=== PATIENT | female | born 1975 | race Caucasian/White ===

== ENCOUNTER 2016-05-05 09:06 | Day surgery (SDC) | payer OTHER ==
[2016-05-01 14:53] VITALS: BMI 18.4
[~2016-05-05 09:06] MED LIST: SODIUM CHLORIDE 0.9% 1,000 ML IV SCH
[2016-05-05 09:46] VITALS: RESP 16; TEMP 98.4
[2016-05-05] MEDS ORDERED: CLINDAMYCIN 900 MG in DEXTROSE 5% IN WATER 50 ML IVPB ONE ×2 (10:00)
[2016-05-05] MEDS ORDERED: IV FLUID CONTINUATION 400 ML IV ONE (11:10)
[2016-05-05] MEDS ORDERED: LIDOCAINE 2% INJ 20 MG/ML SQ ONE (11:16)
[2016-05-05] MEDS ORDERED: fentaNYL (PF) 50 MCG/ML 2 ML AMP ONE (11:19)
[2016-05-05] MEDS ORDERED: fentaNYL (PF) 50 MCG/ML 2 ML AMP IV ONE (11:20)
--- NOTE | 2016-05-05 11:37 | P.PCN ---
Preoperative Diagnosis: Procedure: Loop monitor explant, normal cardiac rhythm, documented seizure Under local anesthesia and sedation and the incision was made directly over the previous surgical site. Dissection down to the loop monitor. Loop monitor was explanted and the wound was closed in a single layer IV antibiotics administered preoperatively Plan Keep foot dry for 5 days, suture removal in 5 days
[2016-05-05 11:57] VITALS: BP 104/68; PULSE 63
== END 2016-05-05 12:02 | disposition home or self-care (01) ==
LOC: CATHEP 09:06
PROVIDERS: ATTEND Internal Medicine Clinical Cardiac Electrophysiology
DX: Z45.09 Encounter for adjustment and management of other cardiac device (principal); R55 Syncope and collapse; R56.9 Unspecified convulsions
CPT/HCPCS: 33284; J2001; J3010

== ENCOUNTER 2016-09-09 02:15 | Emergency (ER) | payer OTHER ==
[2016-09-09 02:33] VITALS: TEMP 97.6
[2016-09-09] MEDS ORDERED: HYDROcodone/APAP 5-325MG 1 EACH TAB PO STA (03:21)
--- NOTE | 2016-09-09 03:34 | ED ---
Burn/Smoke HPI - General Chief complaint: Burn/Smoke Inhalation Stated complaint: Burn on hand, blisters Time Seen by Provider: 09/09/16 02:51 Source: patient, RN notes reviewed Mode of arrival: ambulatory Limitations: no limitations - History of Present Illness Initial comments: 40 yo Female presents to the emergency department with a chief complaint of right hand burn. Patient states that she was cooking dinner tonight around 500pm. Patient states that she had a seizure. She does have a history of seizures and states that she had a seizure much like her normal seizure. Patient states her daughter witnessed the seizure and the patient put her hand into a boiling pot of water. The patient states that she noticed a blistering immediately and she states the tips of her finger also have some decreased sensation. Patient states that she was concerned due to the blistering so she left that she should be seen. Patient is right-handed. Patient states she is up-to-date on her tetanus.Patient denies any recent fever, chills, shortness of breath, chest pain, back pain, abdominal pain, nausea vomiting, numbness or tingling, dysuria or hematuria, constipation or diarrhea, headaches or visual changes, or any other current symptoms. - Related Data Home Medications Medication Instructions Recorded Confirmed Ascorbic Acid [Vitamin C] 500 mg PO DAILY 05/01/16 05/05/16 Cyanocobalamin [Vitamin B-12] 500 mcg PO DAILY 05/01/16 05/05/16 Multivit with Calcium,Iron,Min 1 each PO DAILY 05/01/16 05/05/16 [Women's Multivitamin] levETIRAcetam [Keppra] 750 mg PO Q12HR 05/01/16 05/05/16 Allergies Allergy/AdvReac Type Severity Reaction Status Date / Time Penicillins Allergy Nausea & Verified 09/09/16 02:33 Vomiting ondansetron AdvReac Nausea & Verified 09/09/16 02:33 [From Zofran (as Vomiting & hydrochloride)] Diarrhea Review of Systems ROS Statement: Those systems with pertinent positive or pertinent negative responses have been documented in the HPI. ROS Other: All systems not noted in ROS Statement are negative. Past Medical History Past Medical History: Asthma, Seizure Disorder Additional Past Medical History / Comment(s): SEE DR STEEN H&P, partial complex seizures right side of brain-last seizure 2014, pt states during her seizures she "blacks out" however does not fall History of Any Multi-Drug Resistant Organisms: None Reported Past Surgical History: EPS, Heart Catheterization Additional Past Surgical History / Comment(s): LAPAROSCOPIC ABDOMINAL SURGERY R/ O ENDOMETRIOSIS 01/2012. TTT 03/2014. Loop monitor Past Anesthesia/Blood Transfusion Reactions: Postoperative Nausea & Vomiting ( PONV) Additional Past Anesthesia/Blood Transfusion Reaction / Comment(s): C/O SEVERE PONV AFTER AWAKENED FROM RECOVERY IN LAST SURG 01/2012, FELT IT WAS "DUE TO ANTINAUSEA RX GIVEN," STATES PATIENT. Type of Cardiac Device: Loop Device Placement Date:: 04/24/14 Past Psychological History: No Psychological Hx Reported Smoking Status: Never smoker Past Alcohol Use History: Occasional Additional Past Alcohol Use History / Comment(s): STATES 2 GLASSES OF WINE WEEKLY Past Drug Use History: None Reported - Past Family History Father Family Medical History: Myocardial Infarction (MO) General Exam - General Exam Comments Initial Comments: General: The patient is awake and alert, in no distress, and does not appear acutely ill. Neck: The neck is supple, there is no tenderness. Cardiovascular: There is a regular rate and rhythm. No murmur, rub or gallop is appreciated. Respiratory: Lungs are clear to auscultation, respirations are non-labored, breath sounds are equal. No wheezes, stridor, rales, or rhonchi. Musculoskeletal: Patient does appear to have decreased sensation to the distal aspect of all 4 digits on the right hand. There does appear to be circumferential second degree lamar to digits 2 through 5. There is suspicion for possible third-degree to the tips of the digits. Patient does have full range of motion with in patient's ability to move the blistering areas. Neurological: CN II-XII intact, There are no obvious motor or sensory deficits. Coordination appears grossly intact. Speech is normal. Skin: Skin is warm and dry and no rashes or lesions are noted. Psychiatric: Normal mood and affect. Limitations: no limitations Course Vital Signs 09/09/16 02:27 Temperature 97.6 F Pulse Rate 76 Respiratory 16 Rate Blood Pressure 125/79 O2 Sat by Pulse 98 Oximetry Medical Decision Making - Medical Decision Making 40-year-old female presents to the emergency department with a chief complaint of blisters to the right hand. At this time patient does appear to have second- degree burn. There is a possible risk for third degree lamar to the right hand. Patient did have a seizure leading up to this. However patient does have history of seizures and states this is much like her normal seizure. At this time we will transfer. Due to the burn. This time we will be transferring the patient to the burn center. This is discussed with the patient as well as the discussed [place] receiving burn center at this time we will transfer the patient for continued care. Disposition Clinical Impression: Second degree burn of right hand and fingers Disposition: OTHER INSTITUTION NOT DEFINED Condition: Stable Additional Instructions: Go directly to the burn center Referrals: Millie Nunez MD [Primary Care Provider] - 1-2 days - Out of Hospital Transfer - Req. Specs Out of Hospital Transfer - Requested Specifics: Other Emergency Center ([facility])
[2016-09-09 04:04] VITALS: BP 122/67; PULSE 80; RESP 20
== END 2016-09-09 03:50 | disposition short-term general hospital (02) ==
LOC: EC 02:15
DX: T23.231A Burn of second degree of multiple right fingers (nail), not including thumb, initial encounter (principal); G40.909 Epilepsy, unspecified, not intractable, without status epilepticus; Z88.0 Allergy status to penicillin; Z88.8 Allergy status to other drugs, medicaments and biological substances; Z79.899 Other long term (current) drug therapy; X08.8XXA Exposure to other specified smoke, fire and flames, initial encounter; Y93.G3 Activity, cooking and baking
CPT/HCPCS: 99284

== ENCOUNTER → 2017-10-26 | Outpatient (CLI) | payer OTHER ==
[2017-10-26 18:06] LABS: DHEA Sulfate 152.3 ug/dL (26.0-430.0)
== END | disposition home or self-care (01) ==
LOC: LABWHC1 08:18
PROVIDERS: ATTEND Obstetrics & Gynecology
DX: N94.6 Dysmenorrhea, unspecified (principal); R68.82 Decreased libido; N95.1 Menopausal and female climacteric states
CPT/HCPCS: 36415; 82627; 82670; 83001; 84403

== ENCOUNTER → 2018-02-08 | Outpatient (CLI) | payer OTHER ==
--- NOTE | 2018-02-09 10:37 | MM ---
Reason for exam: screening (asymptomatic). Last mammogram was performed 1 year ago. History: Took hormonal contraceptives for 4 years. Physical Findings: A clinical breast exam by your physician is recommended on an annual basis and results should be correlated with mammographic findings. MG 3D Screening Mammo W/Cad Bilateral CC and MLO view(s) were taken. Prior study comparison: February 07, 2017, bilateral MG 3d screening mammo w/cad. February 04, 2016, bilateral MG screening mammo w CAD. The breast tissue is extremely dense which could obscure a lesion on mammography. There are benign appearing round calcifications in the right breast. There is no discrete abnormality. ASSESSMENT: Benign, BI-RAD 2 RECOMMENDATION: Routine screening mammogram of both breasts in 1 year.
== END | disposition home or self-care (01) ==
LOC: RADMAMWWP 09:24
PROVIDERS: ATTEND Obstetrics & Gynecology
DX: Z12.31 Encounter for screening mammogram for malignant neoplasm of breast (principal)
CPT/HCPCS: 77063; 77067

== ENCOUNTER → 2018-10-04 | Outpatient (CLI) | payer OTHER ==
[2018-10-04 08:35] LABS: Basophils % (A) 1 %; Eosinophils # (A) 0.1 k/uL (0-0.7); Eosinophils % (A) 1 %; HCT 43.3 % (34.0-46.0); HGB 14.1 gm/dL (11.4-16.0); Lymphocytes # (A) 1.8 k/uL (1.0-4.8); Lymphocytes % (A) 28 %; MCH 30.8 pg (25.0-35.0); MCHC 32.6 g/dL (31.0-37.0); MCV 94.5 fL (80.0-100.0); Mean Platelet Volume 8.6; Monocytes # (A) 0.4 k/uL (0-1.0); Monocytes % (A) 6 %; Neutrophils % (A) 63 %; Platelet Count 223 k/uL (150-450); RBC 4.58 m/uL (3.80-5.40); RDW 13.2 % (11.5-15.5); WBC 6.4 k/uL (3.8-10.6)
[2018-10-04 16:19] LABS: Iron Saturation 50.52 (12.00-45.00)
[2018-10-04 16:21] LABS: African American GFR (CKD) 104.7 (60.0-200.0); Albumin 4.3 g/dL (3.80-4.90); Albumin/Globulin Ratio 1.79 (1.60-3.17); Anion Gap 6.9 mmol/L (4.00-12.00); BUN/Creat Ratio 17.5 Ratio (12.00-20.00); Calcium 9.4 mg/dL (8.7-10.3); Carbon Dioxide 28.1 mmol/L (21.6-31.8); Globulin 2.4 g/dL (1.6-3.3); Potassium 4.5 mmol/L (3.5-5.5); Total Bilirubin 0.8 mg/dL (0.3-1.2); Total Protein 6.7 g/dL (6.2-8.2)
== END | disposition home or self-care (01) ==
LOC: LABWHC1 07:41
PROVIDERS: ATTEND Family Medicine
DX: E78.5 Hyperlipidemia, unspecified (principal); R56.9 Unspecified convulsions; N94.5 Secondary dysmenorrhea
CPT/HCPCS: 36415; 80053; 80061; 80177; 82607; 83540; 83550; 84439; 84443; 85025

== ENCOUNTER → 2019-02-10 | Outpatient (CLI) | payer OTHER ==
--- NOTE | 2019-02-11 12:09 | MM ---
Reason for exam: screening (asymptomatic). Last mammogram was performed 1 year ago. History: Took hormonal contraceptives for 4 years. Physical Findings: A clinical breast exam by your physician is recommended on an annual basis and results should be correlated with mammographic findings. MG 3D Screening Mammo W/Cad Bilateral CC, MLO, and XCCL view(s) were taken. Prior study comparison: February 08, 2018, bilateral MG 3d screening mammo w/cad. February 07, 2017, bilateral MG 3d screening mammo w/cad. The breast tissue is extremely dense which could obscure a lesion on mammography. No suspicious abnormality. No significant changes when compared with prior studies. ASSESSMENT: Negative, BI-RAD 1 RECOMMENDATION: Routine screening mammogram of both breasts in 1 year.
== END | disposition home or self-care (01) ==
LOC: RADMAMWWP 09:33
PROVIDERS: ATTEND Obstetrics & Gynecology
DX: Z12.31 Encounter for screening mammogram for malignant neoplasm of breast (principal)
CPT/HCPCS: 77063; 77067

== ENCOUNTER → 2019-04-07 | Outpatient (CLI) | payer OTHER ==
[2019-04-07 07:33] LABS: Basophils % (A) 0 %; Eosinophils # (A) 0.1 k/uL (0-0.7); Eosinophils % (A) 1 %; HCT 39.4 % (34.0-46.0); HGB 13.3 gm/dL (11.4-16.0); Lymphocytes # (A) 1.7 k/uL (1.0-4.8); Lymphocytes % (A) 39 %; MCH 32.6 pg (25.0-35.0); MCHC 33.7 g/dL (31.0-37.0); MCV 96.6 fL (80.0-100.0); Mean Platelet Volume 9.2; Monocytes # (A) 0.3 k/uL (0-1.0); Monocytes % (A) 7 %; Neutrophils # (A) 2.1 k/uL (1.3-7.7); Neutrophils % (A) 49 %; Platelet Count 194 k/uL (150-450); RBC 4.08 m/uL (3.80-5.40); RDW 11.6 % (11.5-15.5); WBC 4.2 k/uL (3.8-10.6)
[2019-04-07 12:11] LABS: % Iron Saturation 26.67 (12.00-45.00); African American GFR (CKD) 103.9 (60.0-200.0); Albumin 4.2 g/dL (3.80-4.90); Albumin/Globulin Ratio 2.1 (1.60-3.17); Anion Gap 4.2 mmol/L (4.00-12.00); BUN/Creat Ratio 11.25 Ratio (12.00-20.00); Calcium 8.8 mg/dL (8.7-10.3); Carbon Dioxide 29.8 mmol/L (21.6-31.8); Chol/HDL Ratio 2.18; LDL Cholesterol,Calculated 92.8 mg/dL (0.0-131.0); Magnesium 1.9 mg/dL (1.5-2.4); Non-African American GFR(CKD) 89.7 (60.0-200.0); Total Bilirubin 0.5 mg/dL (0.3-1.2); Total Protein 6.2 g/dL (6.2-8.2); VLDL Calculation 13.2 mg/dL (5.00-40.00)
== END | disposition home or self-care (01) ==
LOC: LABWHC1 07:00
PROVIDERS: ATTEND Family Medicine
DX: E78.5 Hyperlipidemia, unspecified (principal); R79.0 Abnormal level of blood mineral; R56.9 Unspecified convulsions
CPT/HCPCS: 36415; 80053; 80061; 80177; 82550; 82607; 83540; 83550; 83735; 84443; 85025

== ENCOUNTER 2019-06-20 | Emergency (ER) | payer OTHER | END 2019-06-20 15:47 | disposition home or self-care (01) | CPT/HCPCS: 36415; 93005; 80053; 84484; 85025; 72125; 70450; 71260; 74177; 99284; 96374; 96375; J2270; J2765; Q9967 ==

== ENCOUNTER → 2019-10-18 | Outpatient (CLI) | payer OTHER ==
[2019-10-18 08:04] LABS: Basophils % (A) 1 %; Eosinophils # (A) 0.1 k/uL (0-0.7); Eosinophils % (A) 2 %; HCT 40.1 % (34.0-46.0); HGB 12.7 gm/dL (11.4-16.0); Lymphocytes # (A) 1.3 k/uL (1.0-4.8); Lymphocytes % (A) 27 %; MCH 30.3 pg (25.0-35.0); MCHC 31.8 g/dL (31.0-37.0); MCV 95.2 fL (80.0-100.0); Mean Platelet Volume 8.7; Monocytes # (A) 0.3 k/uL (0-1.0); Monocytes % (A) 7 %; Neutrophils # (A) 2.8 k/uL (1.3-7.7); Neutrophils % (A) 60 %; Platelet Count 171 k/uL (150-450); RBC 4.21 m/uL (3.80-5.40); RDW 12.3 % (11.5-15.5); WBC 4.7 k/uL (3.8-10.6)
[2019-10-18 13:03] LABS: African American GFR (CKD) 103.9 (60.0-200.0); Albumin 4.3 g/dL (3.80-4.90); Albumin/Globulin Ratio 1.87 (1.60-3.17); Calcium 9.2 mg/dL (8.7-10.3); Globulin 2.3 g/dL (1.6-3.3); Non-African American GFR(CKD) 89.7 (60.0-200.0); Potassium 4.8 mmol/L (3.5-5.5); Total Bilirubin 0.5 mg/dL (0.3-1.2); Total Protein 6.6 g/dL (6.2-8.2)
== END ==
LOC: LABWHC1 10-17 09:37
PROVIDERS: ATTEND Family Medicine
DX: E78.5 Hyperlipidemia, unspecified (principal); G90.50 Complex regional pain syndrome I, unspecified; R56.9 Unspecified convulsions
CPT/HCPCS: 36415; 80053; 80177; 84439; 84443; 84480; 85025

== ENCOUNTER → 2020-01-10 | Outpatient (CLI) | payer OTHER ==
[2020-01-10 07:58] LABS: Basophils # (A) 0.1 k/uL (0-0.2); Basophils % (A) 1 %; Eosinophils # (A) 0.1 k/uL (0-0.7); Eosinophils % (A) 2 %; HCT 41.5 % (34.0-46.0); HGB 13.8 gm/dL (11.4-16.0); Lymphocytes # (A) 1.5 k/uL (1.0-4.8); Lymphocytes % (A) 26 %; MCHC 33.2 g/dL (31.0-37.0); MCV 96.4 fL (80.0-100.0); Mean Platelet Volume 8.3; Monocytes # (A) 0.5 k/uL (0-1.0); Monocytes % (A) 8 %; Neutrophils # (A) 3.6 k/uL (1.3-7.7); Neutrophils % (A) 62 %; Platelet Count 184 k/uL (150-450); RBC 4.31 m/uL (3.80-5.40); RDW 12.9 % (11.5-15.5); WBC 5.8 k/uL (3.8-10.6)
[2020-01-10 16:09] LABS: African American GFR (CKD) 121.3 (60.0-200.0); Albumin 4.3 g/dL (3.80-4.90); Albumin/Globulin Ratio 1.87 (1.60-3.17); Anion Gap 7.8 mmol/L (4.00-12.00); BUN/Creat Ratio 17.14 Ratio (12.00-20.00); Calcium 9.1 mg/dL (8.7-10.3); Carbon Dioxide 26.2 mmol/L (21.6-31.8); Globulin 2.3 g/dL (1.6-3.3); Non-African American GFR(CKD) 104.6 (60.0-200.0); Potassium 4.3 mmol/L (3.5-5.5); Total Bilirubin 0.7 mg/dL (0.3-1.2); Total Protein 6.6 g/dL (6.2-8.2)
[2020-01-10 18:07] LABS: Prolactin 8.9 ng/mL (2.8-29.2)
[2020-01-10 18:08] LABS: Luteinizing Hormone 6.2 mIU/mL
[2020-01-11 07:32] LABS: Levetiracetam (Keppra) 17.8 ug/mL (3.0-60.0)
== END | disposition home or self-care (01) ==
LOC: LABWHC1 07:11
PROVIDERS: ATTEND Family Medicine
DX: G40.909 Epilepsy, unspecified, not intractable, without status epilepticus (principal); F32.81 Premenstrual dysphoric disorder
CPT/HCPCS: 36415; 80053; 80177; 80235; 82550; 83001; 83002; 84146; 84403; 84443; 85025

== ENCOUNTER → 2020-02-14 | Outpatient (CLI) | payer OTHER | END | disposition home or self-care (01) | LOC: RADMAMWWP 08:43 | PROVIDERS: ATTEND Family Medicine | DX: Z53.9 Procedure and treatment not carried out, unspecified reason (principal) ==

== ENCOUNTER → 2020-09-19 | Outpatient (CLI) | payer BC ==
--- NOTE | 2020-09-21 10:38 | MM ---
Reason for exam: screening (asymptomatic). Last mammogram was performed 1 year and 7 months ago. History: Took hormonal contraceptives for 4 years. Physical Findings: A clinical breast exam by your physician is recommended on an annual basis and results should be correlated with mammographic findings. MG 3D Screening Mammo W/Cad Bilateral CC and MLO view(s) were taken. Prior study comparison: February 10, 2019, bilateral MG 3d screening mammo w/cad. February 08, 2018, bilateral MG 3d screening mammo w/cad. The breast tissue is extremely dense which could obscure a lesion on mammography. No significant changes when compared with prior studies. ASSESSMENT: Benign, BI-RAD 2 RECOMMENDATION: Routine screening mammogram of both breasts in 1 year.
== END | disposition home or self-care (01) ==
LOC: RADMAMWWP 13:33
PROVIDERS: ATTEND Family Medicine
DX: Z12.31 Encounter for screening mammogram for malignant neoplasm of breast (principal)
CPT/HCPCS: 77063; 77067

== ENCOUNTER → 2021-01-12 | Outpatient (CLI) | payer BC ==
[2021-01-12 11:35] LABS: Basophils # (A) 0.06 X 10*3/uL (0.00-0.10); Basophils % (A) 1.3 %; Eosinophils # (A) 0.08 X 10*3/uL (0.04-0.35); Eosinophils % (A) 1.8 %; HCT 38.3 % (37.2-46.3); HGB 12.4 g/dL (12.0-15.0); Lymphocytes % (A) 40.4 %; MCH 30.7 pg (27.0-32.0); MCHC 32.4 g/dL (32.0-37.0); MCV 94.8 fL (80.0-97.0); Mean Platelet Volume 11.8 fL (9.5-12.2); Monocytes # (A) 0.57 X 10*3/uL (0.20-1.00); Monocytes % (A) 12.8 %; Neutrophils # (A) 1.94 X 10*3/uL (1.80-7.70); Neutrophils % (A) 43.5 %; Platelet Count 199 X 10*3/uL (140-440); RBC 4.04 X 10*6/uL (4.10-5.20); WBC 4.46 X 10*3/uL (4.50-10.00)
[2021-01-12 13:02] LABS: BUN/Creat Ratio 16.72 Ratio (12.00-20.00); Chol/HDL Ratio 2.15 Ratio; Creatine Kinase 63 U/L (26-186); VLDL Calculation 7.42 mg/dL (5.00-40.00)
[2021-01-12 13:03] LABS: ALT 11 U/L (8-44); AST 16 U/L (13-35); Albumin 4.7 g/dL (3.8-4.9); Albumin/Globulin Ratio 1.89 (1.60-3.17); Alkaline Phosphatase 60 U/L (41-126); Blood Urea Nitrogen 14.9 mg/dL (9.0-27.0); Calcium 9.3 mg/dL (8.7-10.3); Carbon Dioxide 22.8 mmol/L (21.6-31.8); Chloride 107 mmol/L (96-109); Globulin 2.5 g/dL (1.6-3.3); Glucose 81 mg/dL (70-110); Non-African American GFR(CKD) 77.6 (60.0-200.0); Potassium 4.3 mmol/L (3.5-5.5); Sodium 141 mmol/L (135-145); Total Bilirubin <0.20 mg/dL (0.30-1.20); Total Protein 7.1 g/dL (6.2-8.2)
== END | disposition home or self-care (01) ==
LOC: LABWHC1 08:02
PROVIDERS: ATTEND Family Medicine
DX: E78.5 Hyperlipidemia, unspecified (principal); G90.50 Complex regional pain syndrome I, unspecified; R56.9 Unspecified convulsions
CPT/HCPCS: 36415; 80053; 80061; 82306; 82550; 82607; 84443; 85025

== ENCOUNTER → 2021-03-01 | Outpatient (CLI) | payer BC ==
--- NOTE | 2021-03-01 15:50 | US ---
EXAMINATION TYPE: US transvaginal DATE OF EXAM: 03/01/2021 COMPARISON: CT June 20, 2019 CLINICAL HISTORY: N92.1 Excessive and frequent menstruation. TECHNIQUE: Transvaginal (TV) and Transabdominal (TA) . Transabdominal sonographic images of the pel vis were acquired. Transvaginal sonographic images were medically necessary to better assess the fol lowing anatomy: Endometrium Date of LMP: irregular. EXAM MEASUREMENTS: Uterus: 8.6x6.0x5.1 cm Endometrial Stripe: 1.8 cm Right Ovary: 4.3x3.8x3.6 cm Left Ovary: 3.9x2.4x1.6 cm 1. Uterus: Retroverted Heterogenous 2. Endometrium: Thickened 3. Right Ovary: Cyst with septation 3.9x3.2x3.1cm 4. Left Ovary: 2.2x1.7x1.6cm cyst with septation 5. Bilateral Adnexa: Obscured by overlying bowel gas 6. Posterior cul-de-sac: Small amount of fluid Heterogeneous slightly retroflexed uterus with endometrial stripe measuring 15 to 18 mm slightly thic kened even for late secretory phase of menstrual cycle. Tiny amount of free fluid in pelvic cul-de-sa c. Both ovaries identified. Right ovary has a 3.9 x 3.2 x 3.1 cm thin-walled cyst with smooth inner wall but has thin septa. Left ovary has similar but smaller 2.2 cm thin-walled cyst with thin septa. IMPRESSION: 1. Heterogeneous thickening of the endometrium, considered dilatation and curettage to further evalua te. 2. Bilateral nonsimple ovarian cysts; O-RADS 2 lesions, almost certainly benign. Follow-up ultrasound in 6-12 weeks time advised to reassess.
== END | disposition home or self-care (01) ==
LOC: RADUSWWP 15:01
PROVIDERS: ATTEND Family Medicine
DX: R93.89 Abnormal findings on diagnostic imaging of other specified body structures (principal); N83.202 Unspecified ovarian cyst, left side; N83.201 Unspecified ovarian cyst, right side
CPT/HCPCS: 76830

== ENCOUNTER → 2021-03-15 | Outpatient (CLI) | payer BC ==
[2021-03-15 15:00] LABS: Basophils # (A) 0.05 X 10*3/uL (0.00-0.10); Basophils % (A) 0.8 %; Eosinophils # (A) 0.06 X 10*3/uL (0.04-0.35); HCT 39.7 % (37.2-46.3); HGB 12.8 g/dL (12.0-15.0); Lymphocytes # (A) 1.58 X 10*3/uL (0.90-5.00); Lymphocytes % (A) 25.2 %; MCH 30.3 pg (27.0-32.0); MCHC 32.2 g/dL (32.0-37.0); MCV 94.1 fL (80.0-97.0); Mean Platelet Volume 12.4 fL (9.5-12.2); Monocytes % (A) 11.2 %; Neutrophils # (A) 3.85 X 10*3/uL (1.80-7.70); Neutrophils % (A) 61.5 %; Platelet Count 215 X 10*3/uL (140-440); RBC 4.22 X 10*6/uL (4.10-5.20); RDW 14.2 % (11.5-14.5); WBC 6.26 X 10*3/uL (4.50-10.00)
[2021-03-15 19:13] LABS: African American GFR (CKD) 78.2 (60.0-200.0); Blood Urea Nitrogen 20.2 mg/dL (9.0-27.0); Calcium 9.2 mg/dL (8.7-10.3); Carbon Dioxide 18.6 mmol/L (20.0-27.5); Chloride 102 mmol/L (96-109); Follicle Stimulating Hormone 6.7 mIU/mL; Glucose 76 mg/dL (70-110); Non-African American GFR(CKD) 67.5 (60.0-200.0); Potassium 4.7 mmol/L (3.5-5.5); Sodium 135 mmol/L (135-145)
[2021-03-15 19:14] LABS: Cancer Antigen 125 16.6 U/mL (0.0-30.1)
[2021-03-15 23:37] LABS: Testosterone <2.50 ng/mL (9.01-47.94)
== END | disposition home or self-care (01) ==
LOC: LABWHC1 09:36
PROVIDERS: ATTEND Family Medicine
DX: N92.1 Excessive and frequent menstruation with irregular cycle (principal); N83.209 Unspecified ovarian cyst, unspecified side
CPT/HCPCS: 36415; 80048; 82670; 83001; 83002; 84144; 84403; 85025; 86304

== ENCOUNTER → 2021-06-11 | Outpatient (CLI) | payer BC ==
--- NOTE | 2021-06-12 07:17 | US ---
EXAMINATION TYPE: US transvaginal DATE OF EXAM: 06/11/2021 COMPARISON: 03/01/21 US Transvaginal CLINICAL HISTORY: N85.00 Endometrial hyperplasia. Endometrial hyperplasia for 3 months; patient state s taking prescribed hormones since March due to thickened endometrium and irregular cycles. TECHNIQUE: Transvaginal (TV). EXAM MEASUREMENTS: Uterus: 9.1 x 5.2 x 5.7 cm Endometrial Stripe: 0.83 cm Right Ovary: 3.3 x 1.8 x 2.1 cm Left Ovary: 3.6 x 2.3 x 2.2 cm 1. Uterus: Retroverted Appears wnl 2. Endometrium: Significant improvement in thickness compared to prior ultrasound 03/01/21 3. Right Ovary: wnl 4. Left Ovary: Probable cyst measuring 2.3 x 1.3 x 1.8 cm 5. Bilateral Adnexa: wnl 6. Posterior cul-de-sac: wnl IMPRESSION: Normalization of endometrial thickness. Probable functional left ovarian cyst.
== END | disposition home or self-care (01) ==
LOC: RADUSWWP 16:51
PROVIDERS: ATTEND Family Medicine
DX: N85.00 Endometrial hyperplasia, unspecified (principal)
CPT/HCPCS: 76830

== ENCOUNTER → 2022-01-07 | Outpatient (CLI) | payer BC ==
--- NOTE | 2022-01-07 22:11 | US ---
EXAMINATION TYPE: US transvaginal DATE OF EXAM: 01/07/2022 COMPARISON: US 2021 CLINICAL HISTORY: N85.00 ENDOMETRIAL HYPERPLASIA. Heavy irregular periods x 1 year TECHNIQUE: Transvaginal exam only per ordering physician Date of LMP: Patient states end of December 2021 EXAM MEASUREMENTS: Uterus: 8.2 x 4.8 x 6.0 cm Endometrial Stripe: 1.2 cm Right Ovary: 5.0 x 2.3 x 2.6 cm Left Ovary: 5.0 x 3.1 x 4.4 cm 1. Uterus: retroverted, mildly heterogeneous 2. Endometrium: patient unsure of exact LMP 3. Right Ovary: multiple small cysts with largest measuring 2.3cm 4. Left Ovary: 4.1cm cyst 5. Bilateral Adnexa: wnl 6. Posterior cul-de-sac: small amount of free fluid IMPRESSION: 1. No evidence for acute pelvic process. 2. Left ovarian cyst measuring 4.1 cm. 3. Endometrium within normal limits for premenopausal patient.
== END | disposition home or self-care (01) ==
LOC: RADUSWWP 16:01
PROVIDERS: ATTEND Family Medicine
DX: N83.202 Unspecified ovarian cyst, left side (principal)
CPT/HCPCS: 76830

== ENCOUNTER → 2022-02-21 | Outpatient (CLI) | payer BC ==
[2022-02-21 14:45] LABS: Basophils # (A) 0.06 X 10*3/uL (0.00-0.10); Eosinophils # (A) 0.11 X 10*3/uL (0.04-0.35); Eosinophils % (A) 1.9 %; HCT 42.1 % (37.2-46.3); HGB 13.7 g/dL (12.0-15.0); Immature Grans, Automated 0 %; Lymphocytes # (A) 1.86 X 10*3/uL (0.90-5.00); Lymphocytes % (A) 32.5 %; MCH 31.7 pg (27.0-32.0); MCHC 32.5 g/dL (32.0-37.0); MCV 97.5 fL (80.0-97.0); Mean Platelet Volume 11.8 fL (9.5-12.2); Monocytes # (A) 0.64 X 10*3/uL (0.20-1.00); Monocytes % (A) 11.2 %; NRBC Per 100 WBC 0 /100 WBCS (0.0-0.0); Neutrophils # (A) 3.05 X 10*3/uL (1.80-7.70); Neutrophils % (A) 53.4 %; Platelet Count 217 X 10*3/uL (140-440); RBC 4.32 X 10*6/uL (4.10-5.20); RDW 12.3 % (11.5-14.5); WBC 5.72 X 10*3/uL (4.50-10.00)
[2022-02-21 23:41] LABS: African American GFR (CKD) 88.2 (60.0-200.0); Anion Gap 8.9 mmol/L (10.00-18.00); BUN/Creat Ratio 13.56 Ratio (12.00-20.00); Blood Urea Nitrogen 12.2 mg/dL (9.0-27.0); Calcium 9.6 mg/dL (8.7-10.3); Cancer Antigen 125 13.9 U/mL (0.0-30.1); Carbon Dioxide 25.1 mmol/L (20.0-27.5); Non-African American GFR(CKD) 76.1 (60.0-200.0); Potassium 4.7 mmol/L (3.5-5.5)
[2022-02-22 00:02] LABS: Follicle Stimulating Hormone 62.9 mIU/mL; Luteinizing Hormone 38.9 mIU/mL
== END | disposition home or self-care (01) ==
LOC: LABWHC1 08:00
PROVIDERS: ATTEND Family Medicine
DX: N92.1 Excessive and frequent menstruation with irregular cycle (principal)
CPT/HCPCS: 36415; 80048; 83001; 83002; 85025; 86304

== ENCOUNTER → 2022-07-05 | Outpatient (CLI) | payer BC ==
[2022-07-05 11:14] LABS: Basophils # (A) 0.05 X 10*3/uL (0.00-0.10); Eosinophils # (A) 0.05 X 10*3/uL (0.04-0.35); HCT 44.5 % (37.2-46.3); Immature Grans, Automated 0.2 %; Lymphocytes # (A) 1.88 X 10*3/uL (0.90-5.00); Lymphocytes % (A) 37.8 %; MCH 30.6 pg (27.0-32.0); MCHC 31.5 g/dL (32.0-37.0); MCV 97.2 fL (80.0-97.0); Monocytes # (A) 0.54 X 10*3/uL (0.20-1.00); Monocytes % (A) 10.9 %; NRBC Per 100 WBC 0 /100 WBCS (0.0-0.0); Neutrophils # (A) 2.44 X 10*3/uL (1.80-7.70); Neutrophils % (A) 49.1 %; Platelet Count 205 X 10*3/uL (140-440); RBC 4.58 X 10*6/uL (4.10-5.20); RDW 12.7 % (11.5-14.5); WBC 4.97 X 10*3/uL (4.50-10.00)
[2022-07-05 11:46] LABS: ALT 15 U/L (8-44); AST 16 U/L (13-35); African American GFR (CKD) 84.9 (60.0-200.0); Albumin 5.2 g/dL (3.8-4.9); Albumin/Globulin Ratio 1.93 (1.60-3.17); Alkaline Phosphatase 67 U/L (41-126); BUN/Creat Ratio 17.87 Ratio (12.00-20.00); Blood Urea Nitrogen 16.6 mg/dL (9.0-27.0); Calcium 10.1 mg/dL (8.7-10.3); Carbon Dioxide 25.1 mmol/L (20.0-27.5); Chloride 106 mmol/L (96-109); Chol/HDL Ratio 2.02 Ratio; Globulin 2.7 g/dL (1.6-3.3); Glucose 87 mg/dL (70-110); LDL Cholesterol,Calculated 114.9 mg/dL (0.0-131.0); Non-African American GFR(CKD) 73.3 (60.0-200.0); Potassium 4.8 mmol/L (3.5-5.5); Sodium 141 mmol/L (135-145); Total Protein 7.9 g/dL (6.2-8.2); VLDL Calculation 12.14 mg/dL (5.00-40.00)
== END | disposition home or self-care (01) ==
LOC: LABWHC1 08:01
PROVIDERS: ATTEND Family Medicine
DX: Z00.00 Encounter for general adult medical examination without abnormal findings (principal); E78.5 Hyperlipidemia, unspecified; E53.8 Deficiency of other specified B group vitamins; E55.9 Vitamin D deficiency, unspecified
CPT/HCPCS: 36415; 80053; 80061; 82306; 82607; 84443; 85025

== ENCOUNTER → 2022-07-10 | Outpatient (CLI) | payer BC ==
--- NOTE | 2022-07-11 07:20 | US ---
EXAMINATION TYPE: US transvaginal DATE OF EXAM: 07/10/2022 COMPARISON: Transvaginal ultrasound 01/07/2022, 322, 03/01/2021. CLINICAL HISTORY: N83.202 UNSPECIFIED OVARIAN CYST, LEFT SIDE. On hormone medication. Follow up left ovarian cyst. TECHNIQUE: Transvaginal (TV). Date of LMP: 07/10/2022, EXAM MEASUREMENTS: Uterus: 8.0 x 5.3 x 4.5 cm Endometrial Stripe: 0.5 cm Left Ovary: 2.1 x 1.7 x 1.0 cm 1. Uterus: Retroverted wnl 2. Endometrium: wnl 3. Right Ovary: Obscured by overlying bowel gas 4. Left Ovary: Follicle seen = 0.8 cm 5. Bilateral Adnexa: Peristalsing bowel gas 6. Posterior cul-de-sac: free fluid Unremarkable retroverted uterus. Endometrium is within normal limits. Right ovary is not visualized d ue to overlying bowel gas. Dominant follicle demonstrated within the left ovary. Previously seen left ovarian cyst is no longer visualized. Small amount of free fluid. IMPRESSION: 1. Dominant left ovarian follicle measuring up to 0.8 cm with small amount of free fluid in the pelv is. Previously seen left ovarian cyst is no longer visualized. 2. Nonvisualization of the right ovary due to overlying bowel gas.
== END | disposition home or self-care (01) ==
LOC: RADUSWWP 16:41
PROVIDERS: ATTEND Family Medicine
DX: N83.202 Unspecified ovarian cyst, left side (principal)
CPT/HCPCS: 76830

== ENCOUNTER 2023-01-27 08:25 | Day surgery (SDC) | payer BC ==
[~2023-01-27 08:25] MED LIST changes: +LACTATED RINGERS 1,000 ML IV SCH; -SODIUM CHLORIDE 0.9% 1,000 ML IV SCH
[2023-01-27 09:18] VITALS: TEMP 99.2
[2023-01-27] MEDS ORDERED: PROPOFOL 10 MG/ML 20 ML VIAL IV ONE (09:37)
--- NOTE | 2023-01-27 09:57 | P.PCN ---
Date of Procedure: 01/27/23 Procedure(s) Performed: BRIEF HISTORY: Patient is a 47-year-old pleasant white female scheduled for an elective colonoscopy as a part of screening for colon cancer and family history of colon cancer. Her sister was diagnosed with colon cancer at age 49. PROCEDURE PERFORMED: Colonoscopy. PREOPERATIVE DIAGNOSIS: Screening for colon cancer and family history of colon cancer. IV sedation per Anesthesia. PROCEDURE: After informed consent was obtained, the patient, was brought into the endoscopy unit. IV sedation was administered by Anesthesia under continuous monitoring. Digital rectal examination was normal. Initially the Olympus CF-160 flexible video colonoscope was then inserted in the rectum, gradually advanced into the cecum without any difficulty. Careful examination was performed as the scope was gradually being withdrawn. Ileocecal valve and the appendiceal orifice were visualized and appeared normal. Prep was excellent. Mucosa of the cecum, ascending colon, transverse colon, descending colon, sigmoid colon, and rectum appeared normal. Retroflexion was performed in the rectum and small internal were seen. The patient tolerated the procedure well. IMPRESSION: Normal-appearing colon from rectum to cecum with no evidence of colorectal neoplasia . RECOMMENDATIONS: Findings of this examination were discussed with the patient as well his family. She was advised to repeat screening colonoscopy in 5 years because of the family history of colon cancer.
[2023-01-27 10:16] VITALS: RESP 16
[2023-01-27 10:36] VITALS: BP 107/67; PULSE 79
== END 2023-01-27 10:57 | disposition home or self-care (01) ==
LOC: ORWHC2ENDO 08:25
PROVIDERS: ATTEND Internal Medicine Gastroenterology
DX: Z12.11 Encounter for screening for malignant neoplasm of colon (principal); K64.8 Other hemorrhoids; J45.909 Unspecified asthma, uncomplicated; Z88.0 Allergy status to penicillin; Z88.8 Allergy status to other drugs, medicaments and biological substances; Z80.0 Family history of malignant neoplasm of digestive organs; Z79.899 Other long term (current) drug therapy
CPT/HCPCS: 45378; J2704

== ENCOUNTER → 2023-01-31 | Outpatient (CLI) | payer BC ==
[2023-01-31 13:35] LABS: Basophils # (A) 0.05 X 10*3/uL (0.00-0.10); Basophils % (A) 0.9 %; Eosinophils # (A) 0.07 X 10*3/uL (0.04-0.35); Eosinophils % (A) 1.2 %; HCT 43.9 % (37.2-46.3); HGB 14.8 d/dL (12.0-15.0); Lymphocytes # (A) 1.93 X 10*3/uL (0.90-5.00); Lymphocytes % (A) 34.4 %; MCH 32.5 pg (27.0-32.0); MCHC 33.7 d/dL (32.0-37.0); MCV 96.5 FL (80.0-97.0); Mean Platelet Volume 11.7 FL (9.5-12.2); Monocytes # (A) 0.61 X 10*3/uL (0.20-1.00); Monocytes % (A) 10.9 %; NRBC Per 100 WBC 0.02 X 10*3/uL (0.00-0.01); Neutrophils # (A) 2.94 X 10*3/uL (1.80-7.70); Neutrophils % (A) 52.4 %; Platelet Count 203 X 10*3/uL (140-440); RBC 4.55 X 10*6/uL (4.10-5.20); RDW 11.9 % (11.5-14.5); WBC 5.61 X 10*3/uL (4.50-10.00)
[2023-01-31 13:51] LABS: ALT 14 U/L (8-44); AST 17 U/L (13-35); Albumin 5.1 d/dL (3.8-4.9); Albumin/Globulin Ratio 1.96 Ratio (1.60-3.17); Alkaline Phosphatase 62 U/L (41-126); Blood Urea Nitrogen 13.5 mg/dL (9.0-27.0); Carbon Dioxide 22.7 mmol/L (21.6-31.8); Chloride 106 mmol/L (96-109); Chol/HDL Ratio 2.06 Ratio; Globulin 2.6 d/dL (1.6-3.3); Glucose 88 mg/dL (70-110); LDL Cholesterol,Calculated 113.7 mg/dL (0.0-131.0); Potassium 4.2 mmol/L (3.5-5.5); Sodium 140 mmol/L (135-145); Total Bilirubin 0.5 mg/dL (0.3-1.2); Total Protein 7.7 d/dL (6.2-8.2); VLDL Calculation 10.28 mg/dL (5.00-40.00)
== END | disposition home or self-care (01) ==
LOC: LABWHC1 08:19
PROVIDERS: ATTEND Family Medicine
DX: G40.909 Epilepsy, unspecified, not intractable, without status epilepticus (principal); E78.5 Hyperlipidemia, unspecified
CPT/HCPCS: 36415; 80053; 80061; 80175; 84443; 85025

== ENCOUNTER → 2023-05-12 | Outpatient (CLI) | payer BC ==
--- NOTE | 2023-05-13 14:37 | MM ---
Reason for Exam: Screening (asymptomatic). Last mammogram was performed 2 year(s) and 8 month(s) ago. Patient History: Menarche at age 12. First Full-Term at age 27. Hormonal Contraceptives for 4 years until age 38. Risk Values: Krysten 5 year model risk: 1.0%. NCI Lifetime model risk: 10.2%. Prior Study Comparison: 02/08/2018 Bilateral Screening Mammogram, [facility]. 02/10/2019 Bilateral Screening Mammogram, [facility]. 09/19/2020 Bilateral Screening Mammogram, [facility]. Tissue Density: The breast tissue is heterogeneously dense. This may lower the sensitivity of mammography. Findings: Analyzed By CAD. There is no suspicious group of microcalcifications or new suspicious mass. Overall Assessment: Negative, BI-RAD 1 Management: Screening Mammogram of both breasts in [address] [facility] will attempt to contact patient to return for supplemental views and ultrasound if indicated. Patient should continue monthly self-breast exams. A clinical breast exam by your physician is recommended on an annual basis. This exam should not preclude additional follow-up of suspicious palpable abnormalities. Note on Krysten scores and lifetime risk: 1. A Krysten score greater than 3% is considered moderate risk. If this is the case, consider specialist referral to assess eligibility for a risk reducing agent. 2. If overall lifetime risk for the development of breast cancer is 20% or higher, the patient may qualify for future screening with alternating mammogram and breast MRI. Electronically signed and approved by: Breezy Maldonado DO
== END | disposition home or self-care (01) ==
LOC: RADMAMWWP 10:35
PROVIDERS: ATTEND Family Medicine
DX: Z12.31 Encounter for screening mammogram for malignant neoplasm of breast (principal)
CPT/HCPCS: 77063; 77067

== ENCOUNTER → 2024-02-11 | Outpatient (CLI) | payer BC ==
--- NOTE | 2024-02-11 10:07 | CA ---
Transthoracic Echo Report Name: Victoria Rausch Age: 48 Gender: F : 1975 Exam Date: 02/11/2024 08:38 Exam Location: [facility] Ht (in): 67 Wt (lb): 115 Ordering Physician: Millie Nunez MD Attending/Referring Phys: Camera Operator Allegra Herrera RDCS Procedure CPT: Indications: Z82.41 Family history of sudden cardiac Cardiac Hx: Technical Quality: Good Contrast 1: Total Dose (mL): Contrast 2: Total Dose (mL): MEASUREMENTS (Male / Female) Normal Values 2D ECHO LV Diastolic Diameter PLAX 3.7 cm 4.2 - 5.9 / 3.9 - 5.3 cm LV Systolic Diameter PLAX 2.4 cm IVS Diastolic Thickness 0.8 cm 0.6 - 1.0 / 0.6 - 0.9 cm LVPW Diastolic Thickness 0.9 cm 0.6 - 1.0 / 0.6 - 0.9 cm LV Relative Wall Thickness 0.5 RV Internal Dim ED PLAX 2.5 cm LA Systolic Diameter LX 2.4 cm 3.0 - 4.0 / 2.7 - 3.8 cm LV Diastolic Volume MOD 4C 60.1 cm??? LV Systolic Volume MOD 4C 24.8 cm??? LV Ejection Fraction MOD 4C 58.7 % LV Cardiac Index MOD 4C 1516.3 cm???/min???m??? LV Diastolic Length 4C 7.6 cm LV Systolic Length 4C 6.3 cm LV Diastolic Volume MOD 2C 59.5 cm??? LV Systolic Volume MOD 2C 22.3 cm??? LV Ejection Fraction MOD 2C 62.6 % LV Cardiac Index MOD 2C 1602.0 cm???/min???m??? LV Diastolic Length 2C 7.1 cm LV Systolic Length 2C 5.6 cm M-MODE Aortic Root Diameter MM 2.9 cm LA Systolic Diameter MM 2.1 cm LA Ao Ratio MM 0.7 DOPPLER AV Peak Velocity 88.7 cm/s AV Peak Gradient 3.1 mmHg Mitral E Point Velocity 79.4 cm/s Mitral A Point Velocity 51.9 cm/s Mitral E to A Ratio 1.5 MV Deceleration Time 263.3 ms MV E' Velocity 12.5 cm/s Mitral E to MV E' Ratio 6.4 FINDINGS Left Ventricle Left ventricular ejection fraction is estimated at 55-60 %. Small left ventricular cavity. Left ventricular wall thickness normal. Normal left ventricular wall motion. Right Ventricle Normal right ventricular size and function. Unable to estimate the right ventricular systolic pressure. Right Atrium Normal right atrial size. No right atrial thrombus or mass seen. Left Atrium Normal left atrial size. No left atrial thrombus or mass present. Mitral Valve Structurally normal mitral valve. No mitral stenosis, regurgitation or prolapse. Aortic Valve Trileaflet aortic valve. No aortic valve stenosis or regurgitation. Tricuspid Valve Structurally normal tricuspid valve. No tricuspid stenosis, regurgitation or prolapse. Pulmonic Valve Structurally normal pulmonic valve. Trace pulmonic regurgitation. Pericardium No pericardial or pleural effusion. Aorta Normal size aortic root and proximal ascending aorta. CONCLUSIONS Normal LV function Previewed by: Dr. Ki Peralta MD (Electronically Signed) Final Date: 11 February 2024 10:06
--- NOTE | 2024-02-11 21:31 | US ---
EXAMINATION TYPE: US Aorta Screening DATE OF EXAM: 02/11/2024 COMPARISON: NONE CLINICAL INDICATION: Female, 48 years old with history of Z82.41 Family hx of sudden cardiac ; s creening TECHNIQUE: Multiple sonographic images of the abdominal aorta are obtained with grayscale and color D oppler imaging. with grayscale and color Doppler imaging FINDINGS: EXAM MEASUREMENTS: Abdominal Aorta: Proximal: 1.5 x 1.9cm Mid: 1.3 x 1.5cm Distal: 1.4 x 1.3cm Bifurcation: Right Iliac: 0.8 x 0.9cm Left Iliac: 0.8 x 0.9cm PUBLIC RELATIONS COUNSELOR NOTES: No evidence of AAA IMPRESSION: No ultrasound evidence of abdominal aortic aneurysm on screening ultrasound. [facility], , 02/11/2024 9:29 PM
== END | disposition home or self-care (01) ==
LOC: RADUSWWP 07:55
PROVIDERS: ATTEND Family Medicine
DX: Z13.6 Encounter for screening for cardiovascular disorders (principal); Z82.41 Family history of sudden cardiac death; I37.1 Nonrheumatic pulmonary valve insufficiency
CPT/HCPCS: 76706; 93306

== ENCOUNTER → 2024-07-20 | Outpatient (CLI) | payer BC ==
--- NOTE | 2024-07-20 08:16 | MM ---
Reason for Exam: Screening (asymptomatic). Last mammogram was performed 1 year(s) and 2 month(s) ago. Patient History: Menarche at age 12. First Full-Term at age 27. Postmenopausal. Hormonal Contraceptives for 4 years until age 38. Risk Values: Krysten 5 year model risk: 1.0%. NCI Lifetime model risk: 10.0%. Prior Study Comparison: 02/10/2019 Bilateral Screening Mammogram, [facility]. 09/19/2020 Bilateral Screening Mammogram, [facility]. 05/12/2023 Bilateral MG 3D screening mammo w/cad, [facility]. Tissue Density: The breasts are extremely dense, which lowers the sensitivity of mammography. Findings: Analyzed By CAD. There is no suspicious group of microcalcifications or new suspicious mass in either breast. Overall Assessment: Benign, BI-RAD 2 Management: Screening Mammogram of both breasts in 1 year. . Patient should continue monthly self-breast exams. A clinical breast exam by your physician is recommended on an annual basis. This exam should not preclude additional follow-up of suspicious palpable abnormalities. Note on Krysten scores and lifetime risk: 1. A Krysten score greater than 3% is considered moderate risk. If this is the case, consider specialist referral to assess eligibility for a risk reducing agent. 2. If overall lifetime risk for the development of breast cancer is 20% or higher, the patient may qualify for future screening with alternating mammogram and breast MRI. [facility], , 07/20/2024 8:13 AM. Electronically signed and approved by: Jayy Abbott M.D. Radiologis
== END | disposition home or self-care (01) ==
LOC: RADMAMWWP 07:43
PROVIDERS: ATTEND Family Medicine
DX: Z12.31 Encounter for screening mammogram for malignant neoplasm of breast (principal); R92.343 Mammographic extreme density, bilateral breasts; Z78.0 Asymptomatic menopausal state; Z92.0 Personal history of contraception
CPT/HCPCS: 77063; 77067

== ENCOUNTER → 2024-07-20 | Outpatient (CLI) | payer BC ==
[2024-07-20 10:32] LABS: Basophils # (A) 0.06 X 10*3/uL (0.00-0.10); Basophils % (A) 1.2 %; Eosinophils # (A) 0.07 X 10*3/uL (0.04-0.35); Eosinophils % (A) 1.4 %; HCT 42.3 % (37.2-46.3); HGB 13.8 g/dL (12.0-15.0); Lymphocytes # (A) 2.02 X 10*3/uL (0.90-5.00); Lymphocytes % (A) 41.6 %; MCH 31.6 pg (27.0-32.0); MCHC 32.6 g/dL (32.0-37.0); MCV 96.8 FL (80.0-97.0); Mean Platelet Volume 11.4 FL (9.5-12.2); Monocytes # (A) 0.47 X 10*3/uL (0.20-1.00); Monocytes % (A) 9.7 %; NRBC Per 100 WBC 0 X 10*3/uL (0.00-0.01); Neutrophils # (A) 2.23 X 10*3/uL (1.80-7.70); Neutrophils % (A) 45.9 %; Platelet Count 231 X 10*3/uL (140-440); RBC 4.37 X 10*6/uL (4.10-5.20); RDW 12.2 % (11.5-14.5); WBC 4.86 X 10*3/uL (4.50-10.00)
[2024-07-20 11:15] LABS: BUN/Creat Ratio 17.56 Ratio (12.00-20.00); Blood Urea Nitrogen 15.8 mg/dL (9.0-27.0); Carbon Dioxide 25.3 mmol/L (21.6-31.8); Chloride 105 mmol/L (96-109); Chol/HDL Ratio 1.83 Ratio; Glucose 85 mg/dL (70-110); LDL Cholesterol,Calculated 96.1 mg/dL (0.0-131.0); Potassium 3.9 mmol/L (3.5-5.5); Sodium 140 mmol/L (135-145); VLDL Calculation 9.94 mg/dL (5.00-40.00)
[2024-07-20 11:16] LABS: ALT 14 U/L (8-44); AST 21 U/L (13-35); Albumin 4.7 g/dL (3.8-4.9); Albumin/Globulin Ratio 1.74 Ratio (1.60-3.17); Alkaline Phosphatase 92 U/L (41-126); Calcium 9.4 mg/dL (8.7-10.3); Globulin 2.7 g/dL (1.6-3.3); Total Bilirubin 0.3 mg/dL (0.3-1.2); Total Protein 7.4 g/dL (6.2-8.2)
== END | disposition home or self-care (01) ==
LOC: LABWHC1 07:38
PROVIDERS: ATTEND Family Medicine
DX: E55.9 Vitamin D deficiency, unspecified (principal); E78.5 Hyperlipidemia, unspecified; E53.8 Deficiency of other specified B group vitamins; G40.909 Epilepsy, unspecified, not intractable, without status epilepticus
CPT/HCPCS: 36415; 80053; 80061; 80175; 82306; 82607; 84443; 85025

== ENCOUNTER → 2024-10-18 | Outpatient (CLI) | payer BC ==
--- NOTE | 2024-10-19 12:10 | BD ---
EXAMINATION TYPE: Axial Bone Density DATE OF EXAM: 10/18/2024 CLINICAL HISTORY: 48 years old Female. ICD-10 CODE: Z78.0 POSTMENOPAUSAL STATE , Additional History: Height: 66.2 in Weight: 119 lbs EXAM MEASUREMENTS: Bone mineral densitometry was performed using the Soundtracker System. Bone mineral density as measured about the Lumbar spine is: ----- L1-L4(G/cm2): 0.965 T Score Values are as follows: ----- L1: -2.1 ----- L2: -2.0 ----- L3: -1.4 ----- L4: -1.9 ----- L1-L4: -1.8 Z Score Values are as follows: ----- L1: -1.4 ----- L2: -1.2 ----- L3: -0.6 ----- L4: -1.1 ----- L1-L4: -1.0 Bone mineral density baseline Bone mineral density about the R hip (g/cm2): 0.649 Bone mineral density about the L hip (g/cm2): 0.690 T Score values are as follows: -----R Neck: -2.2 -----L Neck: -2.0 -----R Total: -2.8 -----L Total: -2.5 Z Score values are as follows: -----R Neck: -1.2 -----L Neck: -1.0 -----R Total: -2.1 -----L Total: -1.8 Bone mineral density baseline FRAX%s: The graph provided illustrates a 5.0% chance for a major osteoporotic fx and a 1.0% chance fo r the hips probability for fx in 10 years time. IMPRESSION: Osteoporosis (T Score less than -2.5). There is increased fracture risk and therapy is usually indicated based on age. Re-Screen 1-2 years. NOTE: T-SCORE=SD OF THE YOUNG ADULT MEAN. [facility], , 10/19/2024 12:07 PM
== END | disposition home or self-care (01) ==
LOC: RADBDWWP 16:19
PROVIDERS: ATTEND Family Medicine
DX: M81.0 Age-related osteoporosis without current pathological fracture (principal); M85.89 Other specified disorders of bone density and structure, multiple sites; Z78.0 Asymptomatic menopausal state
CPT/HCPCS: 77080